=== PATIENT | female | born 1955 | race African-American/Black ===

== ENCOUNTER → 2016-11-22 | Outpatient (CLI) | payer OTHER ==
--- NOTE | 2016-11-22 16:16 | RADRPT ---
PROCEDURE: Right knee radiographs. CLINICAL INDICATION: Right knee pain. TECHNIQUE: Four views. Weight bearing. Frontal, lateral, oblique, and patellar view. COMPARISON: No prior studies are available for comparison. FINDINGS: There is no fracture or dislocation. The soft tissues are normal. There are mild degenerative changes with osteophytes arising from all 3 joint compartment margins. There is no joint space narrowing or deformity. There is no lytic or blastic lesion. There is no radiopaque foreign body. IMPRESSION: 1. Mild degenerative changes. 2. Otherwise normal images of the right knee. RPTAT: QQ .Tian Rivas MD, Date Time Electronically viewed and signed by .Tian Rivas MD, on 11/22/2016 16:15 .R/
== END | disposition home or self-care (01) ==
LOC: HKI 14:44
PROVIDERS: ATTEND Orthopaedic Surgery
DX: S83.271A Complex tear of lateral meniscus, current injury, right knee, initial encounter (principal); I10 Essential (primary) hypertension; X58.XXXA Exposure to other specified factors, initial encounter; M94.261 Chondromalacia, right knee
CPT/HCPCS: 73564; Z7500; G0463

== ENCOUNTER 2017-04-07 09:03 | Day surgery (SDC) | payer OTHER ==
[~2017-04-07] VITALS: Ht 160 cm; Wt 123.9 kg
[2017-04-07] MEDS ORDERED: PROPOFOL 40 ML ONE (10:03)
[2017-04-07 10:28] VITALS: Ht 160 cm; Wt 123.9 kg
[2017-04-07] MEDS ORDERED: TRHC5025 PO (10:33)
[2017-04-07 10:43] VITALS: BP 128/68; PULSE 52; RESP 22
[2017-04-07 11:50] VITALS: BP 137/79; PULSE 69; RESP 20
--- NOTE | 2017-04-07 12:02 | GILP ---
DATE OF PROCEDURE: NAME OF PROCEDURES: 1. Esophagogastroduodenoscopy and biopsy. 2. Colonoscopy and biopsy. SURGEON: Effie Dominguez MD PREOPERATIVE DIAGNOSES: 1. Abdominal pain. 2. Chronic heartburn. 3. Screening colonoscopy. POSTOPERATIVE DIAGNOSES: 1. Gastroesophageal reflux disease. 2. Status post subtotal gastrectomy. 3. Gastric mucosal biopsies were taken for Helicobacter pylori test. 4. Colonoscopy all the way to the cecum. 5. Small rectal polyp was removed using the biopsy forceps. 6. Diverticulosis of the colon. 7. Internal hemorrhoids. INDICATION FOR THE PROCEDURE: Mr. Pebbles Grier is a 61-year-old female patient who had upper abdominal pain and chronic heartburn, not responding to therapy. She needed screening colonoscopy. The procedures and possible complications were well explained to the patient, she understood and con sented to the procedure. DESCRIPTION OF PROCEDURE: Under the influence of anesthesia, the gastroscope was carefully introduc ed into the esophagus and under direct vision, it was advanced to the stomach and through the anasto mosis into the small bowel loop. FINDINGS ESOPHAGUS: The patient had gastroesophageal reflux disease. Esophageal mucosa was normal. STOMACH: The patient had subtotal gastrectomy with a small gastric pouch. The patient had gastriti s. Gastric mucosal biopsies were taken for H pylori test. The small bowel loop was normal. The colonoscope was carefully introduced in the rectum and under direct vision, it was advanced all the way to the cecum. FINDINGS: The patient had somewhat poor prep. The patient was noted to have a rectal polyp and it w as removed using the biopsy forceps. She had diverticulosis of the colon as well as internal hemorr hoids. She tolerated the procedures very well and there was no complication from the procedures. At the en d of the procedures, she was awake with stable vital signs and she was discharged home to the care o f her family. IMPRESSION: Please see postoperative diagnosis. PLAN: 1. Carafate 1 g p.o. t.i.d. a.c. 2. Await H pylori test report. 3. Next screening colonoscopy in 10 years. Dictated By: EFFIE FELIZ/ABDOULAYE Conf#: [id number] DID#: [id number]
== END 2017-04-07 11:58 | disposition home or self-care (01) ==
LOC: GIL 09:03
PROVIDERS: ATTEND Internal Medicine Gastroenterology
DX: Z12.11 Encounter for screening for malignant neoplasm of colon (principal); K62.1 Rectal polyp; K21.9 Gastro-esophageal reflux disease without esophagitis; K57.90 Diverticulosis of intestine, part unspecified, without perforation or abscess without bleeding; K64.8 Other hemorrhoids; I10 Essential (primary) hypertension; E66.01 Morbid (severe) obesity due to excess calories; Z68.42 Body mass index [BMI] 45.0-49.9, adult
CPT/HCPCS: 43239; 45380; 87081; 88305; Z7610